=== PATIENT | female | born 1995 | race Caucasian/White ===

== ENCOUNTER 2017-03-24 17:36 | Emergency (ER) | payer BC ==
[2017-03-24 17:51] VITALS: BP 117/68; PULSE 89; RESP 17; TEMP 97.2
[2017-03-24] MEDS ORDERED: ORPHENADRINE 30 MG/ML 2 ML VIAL IM STA (18:28)
[2017-03-24] MEDS ORDERED: KETOROLAC 60 MG/2 ML VIAL IM STA (18:28)
--- NOTE | 2017-03-24 18:33 | ED ---
General Adult HPI - General Chief complaint: Back Pain/Injury Stated complaint: back to chest pain/osito Time Seen by Provider: 03/24/17 18:22 Source: patient, RN notes reviewed Mode of arrival: ambulatory Limitations: no limitations - History of Present Illness Initial comments: 21-year-old female presents emergency room chief complaint of right upper back and right shoulder pain. Patient states she chronically suffers from this right back and shoulder pain. Patient states that now she noticed that shoots coming around the front end causing her little anterior chest pain. Patient denies shortness of breath at this time but states sometimes it gets severe enough she will have shortness of breath. Patient states that she smokes denies any use of hormones. Patient has a long trips or travel. Patient states it feels much like her shoulder pain is flaring up but is causing radiation of the chest that she was concerned. Patient states she is not currently having any other symptoms at this time. Patient denies any recent fever, chills, back pain, abdominal pain, nausea vomiting, numbness or tingling , dysuria or hematuria, constipation or diarrhea, headaches or visual changes, or any other current symptoms. - Related Data Previous Rx's Medication Instructions Recorded Orphenadrine [Norflex] 100 mg PO Q12H #10 tablet.er 03/24/17 Allergies Allergy/AdvReac Type Severity Reaction Status Date / Time No Known Allergies Allergy Verified 03/24/17 17:48 Review of Systems ROS Statement: Those systems with pertinent positive or pertinent negative responses have been documented in the HPI. ROS Other: All systems not noted in ROS Statement are negative. Past Medical History Past Medical History: No Reported History History of Any Multi-Drug Resistant Organisms: None Reported Past Surgical History: No Surgical Hx Reported Past Psychological History: ADD/ADHD, Anxiety, Bipolar, Depression Smoking Status: Current every day smoker Past Alcohol Use History: Occasional Past Drug Use History: None Reported General Exam - General Exam Comments Initial Comments: General: The patient is awake and alert, in no distress, and does not appear acutely ill. Eye: Pupils are equal, round and reactive to light, extra-ocular movements are intact; there is normal conjunctiva bilaterally. No signs of icterus. Ears, nose, mouth and throat: There are moist mucous membranes. Neck: The neck is supple, there is no tenderness. Cardiovascular: There is a regular rate and rhythm. No murmur, rub or gallop is appreciated. Respiratory: Lungs are clear to auscultation, respirations are non-labored, breath sounds are equal. No wheezes, stridor, rales, or rhonchi. Anterior right-sided chest wall tenderness to touch. Back: There is no tenderness to palpation in the midline. There is no obvious deformity. No rashes noted. Musculoskeletal: Normal ROM, numbness along the trapezius on the right side and down to the anterior clot collarbone. Tenderness along the spine of the scapula There is no pedal edema. There is no calf tenderness or swelling. Sensation intact. Pulses equal bilaterally 2+. Neurological: CN II-XII intact, There are no obvious motor or sensory deficits. Coordination appears grossly intact. Speech is normal. Skin: Skin is warm and dry and no rashes or lesions are noted. Psychiatric: Cooperative, appropriate mood & affect, normal judgment. Limitations: no limitations Course Vital Signs 03/24/17 17:48 Temperature 97.2 F L Pulse Rate 89 Respiratory 17 Rate Blood Pressure 117/68 O2 Sat by Pulse 99 Oximetry EKG Findings - EKG Comments: EKG Findings:: normal sinus rhythm with sinus arrhythmia 77 bpm, normal axis, no atopy, no S-T depressions or elevations, Medical Decision Making - Medical Decision Making 21-year-old female presents with what appears to be a trapezius muscle spasm. Causing some anterior chest pain and pain along the thoracic spine. At this time EKG and chest x-ray reviewed and negative. We discussed the patient muscle axes. We discussed follow-up return parameters all her questions. She stated that she understood and all questions have been answered. She will be discharged. - Radiology Data Radiology results: report reviewed, image reviewed Disposition Clinical Impression: Strain of right trapezius muscle, Costochondral chest pain Disposition: HOME SELF-CARE Condition: Stable Instructions: Muscle Strain (ED), Costochondritis (ED) Additional Instructions: Please use medication as discussed. Please follow up with family doctor if symptoms have not improved over the next two days. Please return to the emergency room if your symptoms increase or worsen or for any other concerns. Prescriptions: Orphenadrine [Norflex] 100 mg PO Q12H #10 tablet.er Referrals: Maynor Anderson DO [Primary Care Provider] - 1-2 days Time of Disposition: 18:47
--- NOTE | 2017-03-24 18:41 | XR ---
EXAMINATION TYPE: XR chest 2V DATE OF EXAM: 03/24/2017 CLINICAL HISTORY: Pain TECHNIQUE: Frontal and lateral views of the chest are obtained. COMPARISON: None FINDINGS: There is no focal air space opacity, pleural effusion, or pneumothorax seen. The cardiac silhouette size is within normal limits. The osseous structures are intact. IMPRESSION: No acute cardiopulmonary process.
== END 2017-03-24 19:03 | disposition home or self-care (01) ==
LOC: EC 17:36
DX: S29.012A Strain of muscle and tendon of back wall of thorax, initial encounter (principal); R07.89 Other chest pain; M25.511 Pain in right shoulder; F17.200 Nicotine dependence, unspecified, uncomplicated; X58.XXXA Exposure to other specified factors, initial encounter
CPT/HCPCS: 93005; 71020; 99285; 96372 ×2; J2360; J1885

== ENCOUNTER 2019-11-01 11:15 | Emergency (ER) | payer OTHER ==
[2019-11-01 11:23] VITALS: BP 127/87; PULSE 114; RESP 20; TEMP 98.6
[2019-11-01 12:17] LABS: Amorphous Sediment,Urine Rare /hpf; Appearance,Urine Cloudy (Clear); Bilirubin,Urine Negative (Negative); Blood,Urine Negative (Negative); Color,Urine Yellow; Glucose,Urine (UA) Negative (Negative); Ketones,Urine Negative (Negative); Leukocyte Esterase,Urine Small (Negative); Mucus,Urine Rare /hpf; Nitrite,Urine Negative (Negative); PH, Urine 6.5 (5.0-8.0); Protein,Urine Negative (Negative); RBC,Urine 2 /hpf (0-5); Specific Gravity,Urine 1.013 (1.001-1.035); Squamous Epithelial Cell,Urine 8 /hpf (0-4); Urobilinogen,Urine <2.0 mg/dL (<2.0); WBC,Urine 5 /hpf (0-5)
--- NOTE | 2019-11-01 12:52 | ED ---
General Adult HPI - General Chief complaint: Nausea/Vomiting/Diarrhea Stated complaint: nausea Time Seen by Provider: 11/01/19 11:16 Source: patient, RN notes reviewed, old records reviewed Mode of arrival: ambulatory Limitations: no limitations - History of Present Illness Initial comments: Patient is a 24-year-old female who presents emergency department today for evaluation with chief complaint of nausea complaints concern for weight gain. Patient states that she is concerned she is possibly . Patient states that she does have a nexplanon implant. She's had this for 18 months. Patient states that she cannot remember when her last menstrual period was. She did take a urine test a few weeks ago and this was negative. Patient states that she has no other complaints no actual vomiting or abdominal pain at this time. - Related Data Home Medications Medication Instructions Recorded Confirmed No Known Home Medications 11/01/19 11/01/19 Allergies Allergy/AdvReac Type Severity Reaction Status Date / Time No Known Allergies Allergy Verified 11/01/19 11:23 Review of Systems ROS Statement: Those systems with pertinent positive or pertinent negative responses have been documented in the HPI. ROS Other: All systems not noted in ROS Statement are negative. Past Medical History Past Medical History: No Reported History History of Any Multi-Drug Resistant Organisms: None Reported Past Surgical History: No Surgical Hx Reported Past Psychological History: ADD/ADHD, Anxiety, Bipolar, Depression Smoking Status: Current every day smoker Past Alcohol Use History: Occasional Past Drug Use History: None Reported General Exam - General Exam Comments Initial Comments: 24 year old female, no distress. Limitations: no limitations General appearance: alert, in no apparent distress Head exam: Present: atraumatic, normocephalic, normal inspection Eye exam: Present: normal appearance, PERRL, EOMI. Absent: scleral icterus, conjunctival injection, periorbital swelling ENT exam: Present: normal exam, mucous membranes moist Neck exam: Present: normal inspection. Absent: tenderness, meningismus, lymphadenopathy Respiratory exam: Present: normal lung sounds bilaterally. Absent: respiratory distress, wheezes, rales, rhonchi, stridor Cardiovascular Exam: Present: regular rate, normal rhythm, normal heart sounds. Absent: systolic murmur, diastolic murmur, rubs, gallop, clicks GI/Abdominal exam: Present: soft, normal bowel sounds. Absent: distended, tenderness, guarding, rebound, rigid Extremities exam: Present: normal inspection, full ROM, normal capillary refill. Absent: tenderness, pedal edema, joint swelling, calf tenderness Back exam: Present: normal inspection Neurological exam: Present: alert, oriented X3, CN II-XII intact Psychiatric exam: Present: normal affect, normal mood Skin exam: Present: warm, dry, intact, normal color. Absent: rash Course Vital Signs 11/01/19 11:18 Temperature 98.6 F Pulse Rate 114 H Respiratory 20 Rate Blood Pressure 127/87 O2 Sat by Pulse 96 Oximetry Medical Decision Making - Medical Decision Making 24 year old female, presents with concern for possible with symptoms of nausea, weight gain and tender breast. She has nexplanon impolant. UA is normal, hcg negative. Discussed not at this time and she cannot remember last menstrual period. Discussed she needs to return if she has pain, actual vomiting. Discussed a urine test at home could be repeated in 2 weeks. . Patient was seen during COVID 10 pandemic. - Lab Data Lab Results 11/01/19 11/01/19 Range/Units 11:45 11:45 Urine Color Yellow Urine Appearance Cloudy H (Clear) Urine pH 6.5 (5.0-8.0) Ur Specific [place] 1.013 (1.001-1.035) Urine Protein Negative (Negative) Urine Glucose (UA) Negative (Negative) Urine Ketones Negative (Negative) Urine Blood Negative (Negative) Urine Nitrite Negative (Negative) Urine Bilirubin Negative (Negative) Urine Urobilinogen <2.0 (<2.0) mg/dL Ur Leukocyte Esterase Small H (Negative) Urine RBC 2 (0-5) /hpf Urine WBC 5 (0-5) /hpf Ur Squamous Epith Cells 8 H (0-4) /hpf Amorphous Sediment Rare H (None) /hpf Urine Mucus Rare H (None) /hpf Urine HCG, Qual Not Detected (Not Detectd) Disposition Clinical Impression: Nausea, Not currently Disposition: HOME SELF-CARE Condition: Good Instructions (If sedation given, give patient instructions): Acute Nausea and Vomiting (ED) Additional Instructions: Please follow up with family doctor if symptoms have not improved over the next two days. Please return to the emergency room if your symptoms increase or worsen or for any other concerns. Is patient prescribed a controlled substance at d/c from ED?: No Referrals: Salvia,Peter N, DO [Primary Care Provider] - 1-2 days Beckie Taylor MD [REFERRING] - 1-2 days Time of Disposition: 12:52
== END 2019-11-01 13:01 | disposition home or self-care (01) ==
LOC: EC 11:15
DX: R11.0 Nausea (principal); R63.5 Abnormal weight gain; F17.200 Nicotine dependence, unspecified, uncomplicated
CPT/HCPCS: 81001; 81025; 99284